=== PATIENT | male | born 1935 | race Caucasian/White ===

== ENCOUNTER 2017-04-05 11:24 | Inpatient (IN) ==
[2017-04-05] MEDS ORDERED: ZOFRAN PO PRN (12:56)
[2017-04-05] MEDS ORDERED: MORPHINE IV PRN (12:56)
[2017-04-05] MEDS ORDERED: RESTORIL PO PRN (12:57)
[2017-04-05] MEDS: CLINIMIX E 4.25%-5% SOLUTION 1,000 ML IV SCH (13:36)
[2017-04-05] MEDS: NORCO-10 PO PRN ×2 (16:54→21:51)
[2017-04-06 06:30] LABS: MANUAL DIFF NEEDED? NO
[2017-04-06] MEDS: CLINIMIX E 4.25%-5% SOLUTION 1,000 ML IV SCH (06:37)
[2017-04-06 06:46] LABS: BASO% 1.4 % (0.0-0.8); EOS# 0.15 X1000 (0.0-0.7); EOS% 1.3 % (0.0-10.0); HEMATOCRIT 27.1 % (42.0-52.0); HEMOGLOBIN 9.6 g/dL (14.0-18.0); IMM GRAN# 0.11 X1000 (0.0-0.04); IMM GRAN% 0.9 % (0.0-0.5); LYMPH# 0.28 X1000 (1.2-3.4); LYMPH% 2.4 % (20.5-51.1); MCH 33.7 PG (27-31); MCHC 35.4 g/dL (33-37); MCV 95.1 FL (81-99); MONO% 9.3 % (1.7-9.3); MPV 9.6 FL (7.4-10.4); NEUT% 84.7 % (42.2-75.2); PLT 397 X1000 (130-400); RBC 2.85 XMIL (4.7-6.1)
[2017-04-06 06:53] LABS: ALBUMIN 2.7 g/dL (3.5-5.0); INR 1.1; POTASSIUM 4.5 mmol/L (3.5-5.1); PROTIME 11.6 Seconds (9.2-11.7); PTT 23.3 Seconds (22.0-36.0); TOTAL BILIRUBIN 14.17 mg/dL (0.20-1.00); TOTAL PROTEIN 5.8 g/dL (6.3-8.3)
[2017-04-06] MEDS ORDERED: GLUCAGON ONE (14:16)
[2017-04-06] MEDS ORDERED: DIPRIVAN 1% ONE (16:24)
--- NOTE | 2017-04-06 16:24 | Diag Imaging Result Doc PS360 ---
EXAM: ERCP-BILIARY AND PANCREATIC HISTORY: Obstructive Jaundice TECHNIQUE: Three views COMPARISON: None. FINDINGS: Contrast fills the common bile duct. There are narrowed segments in the mid common bile duct and the proximal common bile duct is dilated. A wire was placed across the narrowed segment and a biliary stent was placed. IMPRESSION: Common bile duct narrowing with a biliary stent placed. There are Electronically signed by Armaan Isaac 04/06/2017 4:22 PM
[2017-04-06] MEDS ORDERED: XYLOCAINE-MPF 2% ONE (17:00)
[2017-04-06] MEDS ORDERED: LR 500 ML ONE (17:00)
--- NOTE | 2017-04-06 17:47 | OPERATIVE NOTE ---
PROCEDURE DATE: 04/06/2017 PROCEDURE: Endoscopic retrograde cholangiopancreatography, sphincterotomy, stent placement. MEDICATION USED: MAC as per Anesthesia. SCOPE USED: Olympus duodenoscope. HISTORY: This is an 81-year-old white male who has history of stage IV lung cancer, has developed obstructive jaundice. ERCP was done to check for a common bile duct stricture or stenosis secondary to lymphadenopathy in the mayte hepatis. DESCRIPTION OF PROCEDURE: Informed consent was obtained from the patient. The procedure, risks, benefits, alternatives were explained in layman's terms. He understood. All his pertinent questions were answered. Risks of, but not limited to bleeding, perforation, aspiration, pneumonia, and pancreatitis was explained. I have explained to him the pancreatitis could be severe enough, leading to prolonged hospitalization and even . He understood and agreed to proceed. The patient was brought to the endoscopy unit and was premedicated as per Anesthesia. After adequate sedation, while he was lying in left lateral position a duodenoscope was introduced into the posterior pharynx and advanced manually into the esophagus. Through the esophagus, it was advanced into the stomach. Stomach was insufflated. Pylorus was identified. The scope was passed through the pylorus into the duodenal bulb, and then 2nd part of duodenum where the major papilla was identified. Using the sphincterotome with the help of a guidewire, the pancreatic duct was first cannulated, contrast injected, pancreatogram revealed no pathology. Then I shifted onto the common bile duct which was cannulated. After deep cannulation, contrast injected, cholangiogram was obtained, which revealed a smooth stricture in the middle of the common bile duct which was about 15 mm in length. It appears that there was extrinsic compression onto the common bile duct. The proximal biliary system including the intrahepatic ducts were dilated. I went ahead and proceeded with sphincterotomy. After adequate sphincterotomy the stricture was dilated up to 10-British. Then a 7 cm long, 10-British plastic stent was placed into the common bile duct bridging the strictured area. Good drainage was noted. Good position of the stent was noted. Scope was then withdrawn. Patient tolerated the procedure well. No complications noted. Patient was then transferred to the recovery area in a stable condition. IMPRESSION: A smooth stricture middle of the common bile duct most likely from extrinsic compression, dilated, and after sphincterotomy stent was placed without any difficulty. RECOMMENDATION: Advised to continue supportive care, and he will receive for further chemo and other treatment as per Dr. Bhardwaj. Follow up with me in the office in a few weeks. cc: MD Omar Bentley MD
[2017-04-06] MEDS: POTASSIUM CHLORIDE 10 MEQ in D5 NS 1,000 ML IV SCH (18:24)
[2017-04-06] MEDS: NORCO-10 PO PRN (20:08)
[2017-04-07] MEDS: CLINIMIX E 4.25%-5% SOLUTION 1,000 ML IV SCH (03:44)
[2017-04-07] MEDS: POTASSIUM CHLORIDE 10 MEQ in D5 NS 1,000 ML IV SCH (04:32)
[2017-04-07] MEDS: NORCO-10 PO PRN (05:58)
[2017-04-07] MEDS: ZOFRAN IV PRN ×2 (08:06→13:38)
[2017-04-07 08:47] VITALS: BP 122/69
== END 2017-04-07 13:38 | disposition home health service (06) ==
LOC: DIRADM 11:24 → 3N 12:28
PROVIDERS: ADMIT Internal Medicine Hematology & Oncology; ATTEND Internal Medicine Hematology & Oncology
PROC: EN.ERCP (2017-04-06 13:50)

== ENCOUNTER 2017-04-07 22:40 | Inpatient (IN) ==
[~2017-04-07 22:40] MED LIST: QUELICIN ONE
[2017-04-07] MEDS ORDERED: NS 1,000 ML IV ONE ×2 (22:46→23:48)
[2017-04-07] MEDS ORDERED: NS 1,000 ML ONE ×2 (23:07→23:25)
[2017-04-07 23:12] LABS: ALLEN TEST YES; BE -11.8 mmoll (-3.0-3.0); BLOOD TYPE ARTERIAL; DRAW SITE R RADIAL; METHB 0.3 % (0.0-1.5); O2(CT) 10.2 mL/dL (15.0-23.0); PCO2(98.6) 27 mmHg (35-45); SAMPLE BLOOD; SAO2 82.1 % (95.0-100.0)
[2017-04-07 23:14] LABS: MODALITY NRB; PO2(98.6) 47 mmHg (60-100)
[2017-04-07] MEDS ORDERED: ATIVAN IV ONE (23:27)
[2017-04-07 23:32] LABS: INR 1.42; PROTIME 15.2 Seconds (9.2-11.7); PTT 30.9 Seconds (22.0-36.0)
[2017-04-07 23:38] LABS: ALBUMIN 1.9 g/dL (3.5-5.0); BASO% 0.1 % (0.0-0.8); EOS# 0.01 X1000 (0.0-0.7); HEMATOCRIT 25.4 % (42.0-52.0); HEMOGLOBIN 9.2 g/dL (14.0-18.0); IMM GRAN# 0.16 X1000 (0.0-0.04); IMM GRAN% 0.6 % (0.0-0.5); LYMPH% 2.3 % (20.5-51.1); MANUAL DIFF NEEDED? NO; MCH 34.5 PG (27-31); MCHC 36.2 g/dL (33-37); MCV 95.1 FL (81-99); MONO% 3.8 % (1.7-9.3); MPV 9.7 FL (7.4-10.4); NEUT% 93.2 % (42.2-75.2); PLT 459 X1000 (130-400); RBC 2.67 XMIL (4.7-6.1); TOTAL BILIRUBIN 7.87 mg/dL (0.20-1.00); TOTAL PROTEIN 4.4 g/dL (6.3-8.3)
[2017-04-07] MEDS ORDERED: LEVOPHED 8 MG in D5 1/2 NS 250 ML IV SCH (23:45)
[2017-04-07 23:47] LABS: MAGNESIUM 2.4 mg/dL (1.5-2.7)
[2017-04-08 00:03] LABS: CALCIUM 6.5 mg/dL (8.8-10.2)
[2017-04-08 00:16] LABS: ALLEN TEST YES; BE -13.2 mmoll (-3.0-3.0); BLOOD TYPE ARTERIAL; DRAW SITE R BRACHIAL; METHB 0.3 % (0.0-1.5); O2(CT) 13.5 mL/dL (15.0-23.0); PCO2(98.6) 26 mmHg (35-45); PO2(98.6) 333 mmHg (60-100); SAMPLE BLOOD; SAO2 99.9 % (95.0-100.0); SRATE 4 BPM; THB 9.1 g/dL (11.5-17.4); pH(98.6) 7.28 (7.35-7.45)
[2017-04-08 00:17] LABS: MODALITY BI PAP
[2017-04-08] MEDS ORDERED: MERREM 1 GM in NS 50 ML IV ONE (00:17)
--- NOTE | 2017-04-08 00:35 | PROVIDER DOCUMENTATION ---
This chart was entered by Lore May Scribe, acting as scribe for Fidel Shaffer MD. HPI-Respiratory General - General Chief Complaint: Shortness of Breath Stated Complaint: resp distress Time Seen by Provider: 04/07/17 22:50 Source: family, EMS Allergies/Adverse Reactions: Patient Allergies Allergy/AdvReac Type Severity Reaction Status Date / Time Penicillins Allergy RASH Verified 02/28/17 15:12 Home Medications: Home Medication List Medication Instructions Recorded Confirmed Last Taken Type Ondansetron [Zofran Odt] 8 mg PO PRN PRN 02/28/17 04/05/17 04/04/17 06:00 History 8MG Hydrocodone/APAP 5 mg/325 mg 1 each PO Q4-6H PRN PRN 04/05/17 04/05/17 04/05/17 08:00 History [[place]-5] Megestrol Acetate [Megace] 10 ml PO DAILY 04/05/17 04/05/17 Unknown History Metoclopramide HCl [Reglan] 5 mg PO TID 04/05/17 04/05/17 04/04/17 16:00 History - History of Present Illness-Resp Nature of Presenting Problem: 81 Y/O M presents to ED with Respiratory Distress. EMS states that pt was in respiratory distress for 34 hours and was just released from the hospital and had difficulty breathing. Pt has a hx of bladder cancer that metastasized to the rest of his body. Pt is severely Jaundice on appearance. EMS states diminished lung sound on lower right side and tachypneic. Quality of Pain: reports: tightness Severity in ED: reports: severe Onset/Duration: reports: just prior to arrival, 4-6 hours ago, this evening Timing: reports: still present Episode Frequency: chronic episodes Current Respiratory Medication Therapy: Initiated see nurses note Modifying Factors: improves with: oxygen Associated Symptoms: reports: shortness of breath. denies: fever/chills, flu- like symptoms Similar Symptoms Previously?: Yes Recently seen or treated by another doctor?: Yes Review of Systems - Adult - REVIEW OF SYSTEMS - ADULT Constitutional: denies: chills, fever Eyes: reports: no symptoms reported Ears, Nose, Mouth & Throat: reports: no symptoms reported Cardiovascular: reports: no symptoms reported Respiratory: reports: shortness of breath. denies: cough Gastrointestinal: reports: no symptoms reported Genitourinary: reports: no symptoms reported Musculoskeletal: reports: no symptoms reported Integumentary: reports: no symptoms reported Neurological: reports: no symptoms reported Psychiatric: reports: no symptoms reported Endocrine: reports: no symptoms reported Hematologic/Lymphatic: reports: no symptoms reported Allergic/Immunologic: reports: no symptoms reported All Other Systems: Reviewed and Negative Past History - Adult - PAST MEDICAL HISTORY-ADULT Review of Records: reports: Old Records Reviewed, Nursing Assessment Review, Medications Reviewed, Social history reviewed & non-contributory. Physical Exam-General - PHYSICAL EXAM-ADULT Initial Vital Signs Reviewed: Yes - CONSTITUTIONAL General Appearance: severe distress, obtunded - EYES Eyes: scleral icterus, sunken eyes - HEAD, EARS, NOSE, MOUTH & THROAT HENMT: normocephalic/atraumatic - NECK Neck: non-tender, full range of motion, supple, lymphadenopathy - RESPIRATORY Respiratory: respiratory distress, decreased breath sounds. negative: wheezing - CARDIOVASCULAR Cardiovascular: regular rate, rhythm, no edema, no gallop, no JVD. negative: normal peripheral pulses (decreased) - GASTROINTESTINAL (ABDOMEN) Abdominal Exam: non tender, mass (multiple), hepatomegaly - LYMPHATIC Lymphatic: no adenopathy - MUSCULOSKELETAL Back Exam: normal inspection Extremity: non-tender - SKIN Integumentary: jaundice. negative: normal color Progress - PLAN OF CARE/RESULTS Progress/Plan/Lab Results: Vital Signs - 8 hr 04/07/17 22:40 04/07/17 23:10 Temperature 97.7 F Pulse Rate 116 H 113 H Respiratory Rate 28 H 30 H Blood Pressure 97/46 116/67 O2 Sat by Pulse Oximetry 99 96 Laboratory Results - last 24 hr 04/07/17 04/07/17 04/07/17 22:55 22:55 22:55 WBC 26.18 H D RBC 2.67 L Hgb 9.2 L Hct 25.4 L MCV 95.1 MCH 34.5 H MCHC 36.2 RDW Std Deviation 19.9 H Plt Count 459 H MPV 9.7 Immature Gran % (Auto) 0.6 H Neut % (Auto) 93.2 H Lymph % (Auto) 2.3 L [place] % (Auto) 3.8 Eos % (Auto) 0.0 Baso % (Auto) 0.1 Immature Gran # (Auto) 0.16 H Neut # (Auto) 24.39 H Lymph # (Auto) 0.60 L [place] # (Auto) 1.00 H Eos # (Auto) 0.01 Baso # (Auto) 0.02 PT INR PTT (Actin FS) D-Dimer Specimen Type Sample Site pH pCO2 pO2 HCO3 Base Excess Oxyhemoglobin ABG O2 Sat (Calculated) ABG O2 Saturation ABG Carboxyhemoglobin ABG Methemoglobin Bill Test A-a O2 Difference Total Hemoglobin Lactate Liter Flow Blood Gas Modality Vent Mode Spontaneous Rate FiO2 % Inspiratory BiPAP Expiratory BiPAP Sodium 131 L Potassium 5.0 Chloride 97 L Carbon Dioxide 15 L Anion Gap 19 BUN 73 H Creatinine 2.4 H Estimated GFR/1.73 m2 26 BUN/Creatinine Ratio 30 Glucose 96 Calculated Osmolality 284 Calcium 6.5 L* D Magnesium 2.4 Total Bilirubin 7.87 H AST 93 H ALT 137 H Alkaline Phosphatase 761 H Creatine Kinase 108 Troponin T [id number] Pept Total Protein 4.4 L Albumin 1.9 L Globulin 2.5 Albumin/Globulin Ratio 0.8 04/07/17 04/07/17 04/07/17 22:55 22:55 22:55 WBC RBC Hgb Hct MCV MCH MCHC RDW Std Deviation Plt Count MPV Immature Gran % (Auto) Neut % (Auto) Lymph % (Auto) [place] % (Auto) Eos % (Auto) Baso % (Auto) Immature Gran # (Auto) Neut # (Auto) Lymph # (Auto) [place] # (Auto) Eos # (Auto) Baso # (Auto) PT INR PTT (Actin FS) D-Dimer 6.17 H Specimen Type Sample Site pH pCO2 pO2 HCO3 Base Excess Oxyhemoglobin ABG O2 Sat (Calculated) ABG O2 Saturation ABG Carboxyhemoglobin ABG Methemoglobin Bill Test A-a O2 Difference Total Hemoglobin Lactate Liter Flow Blood Gas Modality Vent Mode Spontaneous Rate FiO2 % Inspiratory BiPAP Expiratory BiPAP Sodium Potassium Chloride Carbon Dioxide Anion Gap BUN Creatinine Estimated GFR/1.73 m2 BUN/Creatinine Ratio Glucose Calculated Osmolality Calcium Magnesium Total Bilirubin AST ALT Alkaline Phosphatase Creatine Kinase Troponin T < 0.010 [id number]-Dcijxcshpow Pept 1870 H Total Protein Albumin Globulin Albumin/Globulin Ratio 04/07/17 04/07/17 04/07/17 22:55 22:58 23:58 WBC RBC Hgb Hct MCV MCH MCHC RDW Std Deviation Plt Count MPV Immature Gran % (Auto) Neut % (Auto) Lymph % (Auto) [place] % (Auto) Eos % (Auto) Baso % (Auto) Immature Gran # (Auto) Neut # (Auto) Lymph # (Auto) [place] # (Auto) Eos # (Auto) Baso # (Auto) PT 15.2 H D INR 1.42 PTT (Actin FS) 30.9 D-Dimer Specimen Type ARTERIAL ARTERIAL Sample Site R RADIAL R BRACHIAL pH 7.30 L 7.28 L pCO2 27 L 26 L pO2 47 L* 333 H HCO3 15.4 L 14.7 L Base Excess -11.8 L -13.2 L Oxyhemoglobin 80.5 L* 98.6 ABG O2 Sat (Calculated) 10.2 L 13.5 L ABG O2 Saturation 82.1 L 99.9 ABG Carboxyhemoglobin 1.70 1.00 ABG Methemoglobin 0.3 0.3 Bill Test YES YES A-a O2 Difference 632.0 348.0 Total Hemoglobin 9.0 L 9.1 L Lactate 5.30 H* 4.40 H Liter Flow 15.0 Blood Gas Modality NRB BI PAP Vent Mode BIPAP Spontaneous Rate 4 FiO2 % 100.0 100.0 Inspiratory BiPAP 12.0 Expiratory BiPAP 5.0 Sodium Potassium Chloride Carbon Dioxide Anion Gap BUN Creatinine Estimated GFR/1.73 m2 BUN/Creatinine Ratio Glucose Calculated Osmolality Calcium Magnesium Total Bilirubin AST ALT Alkaline Phosphatase Creatine Kinase Troponin T Ghj-C-Bwrwnrxksdf Pept Total Protein Albumin Globulin Albumin/Globulin Ratio Orders Category Date Time Status Cardiac Monitoring DIRECTED Care 04/07/17 22:54 Completed Oxygen Therapy- ED Nursing DIRECTED Care 04/07/17 22:54 Completed Saline Loc NOW Care 04/07/17 22:54 Completed CHEST-PORTABLE [RAD] Stat Exams 04/07/17 22:51 Taken ABG [RESP] Routine Lab 04/07/17 22:58 Completed ABG [RESP] Routine Lab 04/07/17 23:58 Ordered BLOOD CULTURE [BLDCUL] Stat Lab 04/08/17 00:17 Uncollected CBC WITH ELECTRONIC DIFF [HEME] Stat Lab 04/07/17 22:55 Completed CK PROFILE [SP CHEM] Stat Lab 04/07/17 22:55 Completed COMPREHENSIVE METABOLIC PANEL [CHEM] Stat Lab 04/07/17 22:55 Completed D-DIMER [CHEM] Stat Lab 04/07/17 22:55 Completed MAGNESIUM [CHEM] Stat Lab 04/07/17 22:55 Completed PRO B-NATRIURETIC PEPTIDE Stat Lab 04/07/17 22:55 Completed PROTIME WITH INR [COAG] Stat Lab 04/07/17 22:55 Completed PTT [COAG] Stat Lab 04/07/17 22:55 Completed TROPONIN T Stat Lab 04/07/17 22:55 Completed 0.9% Sodium Chloride Inj [Ns] 1,000 ml Med 04/07/17 23:07 Discontinued .ROUTE As Directed 0.9% Sodium Chloride Inj [Ns] 1,000 ml Med 04/07/17 23:25 Discontinued .ROUTE As Directed 0.9% Sodium Chloride Inj [Ns] 1,000 ml Med 04/07/17 22:46 Discontinued IV 999 mls/hr 0.9% Sodium Chloride Inj [Ns] 1,000 ml Med 04/07/17 23:48 Active IV 999 mls/hr Dextrose 5%-0.45% NaCl Inj [D5 1/2 Ns] 250 ml Med 04/07/17 23:45 Active Norepinephrine [Levophed] 8 mg IV As Directed Lorazepam [Ativan] Med 04/07/17 23:27 Discontinued 0.5 mg IV NOW ONE Succinylcholine [Quelicin] Med 04/07/17 22:39 Discontinued 200 mg .ROUTE .STK-MED ONE EKG [EKG] Stat Ther 04/07/17 22:54 Ordered Result Diagrams: 04/07/17 22:55 04/07/17 22:55 - EKG 1 Time of EKG reading by physician:: 23:03 EKG Read and Signed by:: Fidel Shaffer EKG Interpretation (*Must complete 3 of following elements*): Abnormal Rate: 103 Rhythm: Afib with RVR Comments: Abnormal ECG - CONSULTS/PCP/HOSPITALIST Notification #1 *Consult/PCP/Hospitalist*: Time Discussed: 00:32 Reason/Comments: Admit Consult Disposition: Admit (Admit Accepted) Departure - Departure Date of Disposition Decision: 04/08/17 Time of Disposition Decision: 00:33 DIAGNOSIS: Septic shock, Metastatic cancer Disposition: ADMITTED INPATIENT 09 Certified Medical Emergency: Emergent Condition: Good Referrals and Follow-Ups: None,PCP [Primary Care Provider] - - Critical Care Note This patient required my direct & personal management of CC.: Yes Total Time (mins): 45 Critical Care Statement: This patient required my direct personal management to treat or rule out processes, the absence of which, could potentiallly result in sudden, clinically significant life or limb threatening deterioration. This chart was documented by the indicated scribe, (Lore May Scribe) and accurately reflects the services I performed and decisions made by me, Fidel Shaffer MD, as attested by the provider's signature.
[2017-04-08] MEDS ORDERED: VANCOMYCIN IV PER PHARMACY MISC SCH (01:00)
[2017-04-08 01:54] LABS: URINE CULTURE NEEDED? NO; URINE MICRO REVIEW NEEDED? NO; URINE SOURCE CATH
[2017-04-08] MEDS ORDERED: TRANSDERM-SCOP TD ONE (01:55)
[2017-04-08 01:57] LABS: BILIRUBIN URINE SMALL (NEGATIVE); BLOOD URINE TRACE (NEGATIVE); COLOR YELLOW; GLUCOSE URINE NEGATIVE (NEGATIVE); LEUKOCYTES URINE NEGATIVE (NEGATIVE); NITRITE URINE NEGATIVE (NEGATIVE); PH URINE 5.5; PROTEIN URINE TRACE mg/dL (NEGATIVE); SP GRAVITY URINE 1.016; TURBIDITY URINE CLEAR (CLEAR); UROBILINOGEN URINE NORMAL (NORMAL)
[2017-04-08] MEDS ORDERED: MORPHINE ONE (01:57)
[2017-04-08 01:58] LABS: UR EPITHELIAL CELLS <10 /HPF (<10); URINE BACTERIA NEGATIVE /HPF; URINE RBC <10 /HPF (<10); URINE WBC <10 /HPF (<10)
[2017-04-08] MEDS: MORPHINE IV PRN ×5 (02:00→06:20)
[2017-04-08] MEDS: ATIVAN IV PRN ×5 (02:07→06:20)
--- NOTE | 2017-04-08 02:38 | HISTORY AND PHYSICAL ---
HISTORY OF PRESENT ILLNESS: This is an 81-year-old, male with past medical history of bladder cancer with metastasis to lung and liver, who was brought to the emergency department because of respiratory distress. It started happening like 3-4 hours ago. He was just released from the hospital. He is very jaundiced and he got a stent placed We have talked with the family about the prognosis of this patient and after we went over with them what is the diagnosis, what is the prognosis, family decided for comfort care measures only and patient is Do Not Resuscitate level 1 now. PAST MEDICAL HISTORY: Bladder cancer with metastases to the liver and lungs. PAST SURGICAL HISTORY: Recent placement of stent done by Dr. Barry yesterday. Rest of the medical history not possible to obtain because of the clinical situation of the patient. PHYSICAL EXAMINATION: VITALS: Temperature 97.7 degrees, heart rate 114, respiratory rate 30, blood pressure 116/77, and O2 saturation 96% on BiPAP. GENERAL: This is an 81-year-old, male, chronically ill-looking, in mild respiratory distress. Jaundiced all over, gasping for air. HEENT: Head is normocephalic, atraumatic. Very icteric sclerae and very pale conjunctivae. Mucous membranes dry. NECK: Supple. No JVD noted. No carotid bruits. No lymphadenopathy. CARDIOVASCULAR: S1, S2 heard. Tachycardic. No murmurs, gallops, or rubs. RESPIRATORY: Coarse breath sounds both pulmonary patel. Patient is using accessory muscles. Patient is having work of breathing. ABDOMEN: Soft, distended. Nontender to palpation. Bowel sounds absent. EXTREMITIES: 3+ pitting edema in both lower extremities. Peripheral pulses present but faint. NEUROLOGICAL: Patient just knows his name but does not follow commands. Moves 4 extremities. LABORATORY DATA: White cell count 26.18, hemoglobin 9.2, hematocrit 35.3, platelets 459,000. BMP shows calcium 6.5, sodium 131, creatinine 2.4. ASSESSMENT AND PLAN: 1. 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 2. Code status. Do Not Resuscitate level 1. 3. Patient is going to be admitted to the hospital for respiratory distress secondary to lung metastases secondary to bladder cancer. Family has agreed to just provide comfort care measures only considering that the prognosis on this patient is very poor. He really declining quickly. Patient is going to be admitted to the hospital. We are going to provide for control of symptoms, morphine and Ativan, and also a scopolamine patch. We are going to consult tomorrow hospice. 4. Further recommendations to follow according to the clinical situation of the patient. cc: Tarun Ackerman MD
[2017-04-08 02:40] VITALS: BP 68/42
--- NOTE | 2017-04-08 05:17 | EKG Report ---
Test Performed on : 04/07/2017 11:03:10 PM Test Reason : Chest Pain Blood Pressure : / mmHG Vent. Rate : 103 BPM Atrial Rate : 091 BPM P-R Int : 000 ms QRS Dur : 060 ms QT Int : 350 ms P-R-T Axes : 000 -04 029 degrees QTc Int : 458 ms Atrial fibrillation. with rapid ventricular response. Abnormal ECG When compared with ECG of 28-FEB-2017 15:39, Atrial fibrillation. has replaced Sinus rhythm. Unconfirmed Result
--- NOTE | 2017-04-08 08:02 | Diag Imaging Result Doc PS360 ---
EXAM: CHEST-PORTABLE HISTORY: resp depression TECHNIQUE: AP portable at 2300 COMMENT: The inspiration is suboptimal. There are no previous studies. There is a nodule in the left upper lung projected between the anterior second and third ribs. This nodule was demonstrated on the CT of 04/01/2017 and is located in the superior segment of the lower lobe. Otherwise the lungs appear to be clear and the heart and pulmonary vascularity are within normal limits. IMPRESSION: Left lower lobe nodule. No evidence of acute disease Electronically signed by Familia Phelps 04/08/2017 8:00 AM
--- NOTE | 2017-04-08 09:27 | DISCHARGE SUMMARY ---
ADMISSION DATE: 04/08/2017 DISCHARGE DATE: 04/08/2017 The patient on 04/08/2017. CONSULTATIONS: None. PERTINENT PROCEDURES: 1. Chest x-ray showed left lower lobe nodule, no evidence of acute disease. 2. EKG showed atrial fibrillation with RVR. DISCHARGE DIAGNOSES: 1. End-stage bladder cancer with metastasis to the lung and liver. The patient on 04/08/2017. 2. Code status DNR level 1. Patient on the morning of 04/08/2017. 3. Acute respiratory distress secondary to lung metastasis secondary to bladder cancer. Again, patient was made DNR level 1 and has . He was set up for hospice consult this a.m. HOSPITAL COURSE: Briefly, Mr. Herrera is an 81-year-old male with past medical history of bladder cancer with metastasis to the lungs and liver. He was brought to the emergency department because of respiratory distress. It initially started 3 or 4 hours prior to his admission. He was just released from the hospital. He was jaundiced, he got a stent placed. The overnight doctors talked to the family about the prognosis of the patient, and after they went over his diagnosis as well as his prognosis, the family decided for comfort care measures only with a DNR level 1. He was admitted to the medical floor for acute respiratory distress. He was initially placed on BiPAP, but due to being a DNR level 1 he was taken off the BiPAP and given medications to control his symptoms with morphine and Ativan, as well as a scopolamine patch, as well as a consult for hospice. However, the patient did pass on 04/08/2017, I believe right before 7 a.m. Dictated by MELISSA Echols for Gary Johnson MD cc: Gary Johnson MD
== END 2017-04-08 07:16 | disposition expired ==
LOC: ED 22:40 → 3N 04-08 02:03 → SUATTDRO 04-08 02:03
PROVIDERS: ATTEND Internal Medicine